=== PATIENT | male | born 1960 | race Caucasian/White ===

== ENCOUNTER → 2020-10-30 | Outpatient (CLI) | payer OTHER | LOC: EXRD 09:50 | DX: K76.0 Fatty (change of) liver, not elsewhere classified (principal); K80.20 Calculus of gallbladder without cholecystitis without obstruction | CPT/HCPCS: 76700 ==

== ENCOUNTER → 2021-06-19 | Outpatient (CLI) | payer BC | LOC: KOH-I 09:24 | DX: K74.60 Unspecified cirrhosis of liver (principal); K76.0 Fatty (change of) liver, not elsewhere classified | CPT/HCPCS: 76700 ==